=== PATIENT | female | born 1995 | race Hispanic/Latino ===

== ENCOUNTER 2017-09-30 22:33 | Emergency (ER) | payer MEDICAID, OTHER ==
[~2017-09-30 22:33] MED LIST: PREN-147 PO
[2017-09-30] MEDS ORDERED: ACETAMINOPHEN 325 MG TAB ONE (22:54)
[2017-09-30 23:21] LABS: RAPID GROUP A STREP NEGATIVE (NEGATIVE)
[2017-10-01] MEDS ORDERED: IBUPROFEN 400 MG TABLET ONE (00:02)
[2017-10-01 00:21] LABS: BILIRUBIN,URINE Small (NEGATIVE); COLOR,URINE Dark Yellow (YELLOW); GLUCOSE, URINE (UA) Negative (NEGATIVE); KETONES,URINE Trace mg/dL (NEGATIVE); LEUKOCYTE ESTERASE ,URINE Small (NEGATIVE); NITRATE,URINE Negative (NEGATIVE); OCCULT BLOOD,URINE Large (NEGATIVE); PH,URINE 5.5 (5.0-8.0); PROTEIN,URINE POS 1+ (NEGATIVE)
[2017-10-01 00:23] LABS: APPEARANCE,URINE SLIGHTLY CLOUDY (CLEAR); HCG,QUAL RESULT NEGATIVE (NEGATIVE)
[2017-10-01 00:27] LABS: RBC,URINE 26-50 /HPF (0-1)
[2017-10-01 00:28] LABS: BACTERIA,URINE Few /HPF (None Seen); MUCUS,URINE Few LPF (None Seen)
== END 2017-10-01 00:38 | disposition home or self-care (01) ==
LOC: EDH 22:33
DX: B34.9 Viral infection, unspecified (principal); M54.9 Dorsalgia, unspecified
CPT/HCPCS: 81001; 81025; 87804; 87880

== ENCOUNTER 2018-06-12 19:47 | Emergency (ER) | payer MEDICAID, OTHER ==
[2018-06-12 20:07] LABS: APPEARANCE,URINE Cloudy (CLEAR); BILIRUBIN,URINE Negative (NEGATIVE); COLOR,URINE Yellow (YELLOW); GLUCOSE, URINE (UA) Negative (NEGATIVE); KETONES,URINE Negative (NEGATIVE); LEUKOCYTE ESTERASE ,URINE Trace (NEGATIVE); NITRATE,URINE Negative (NEGATIVE); OCCULT BLOOD,URINE Negative (NEGATIVE); PH,URINE 5.5 (5.0-8.0); PROTEIN,URINE Negative (NEGATIVE)
[2018-06-12 20:09] LABS: HCG,QUAL RESULT NEGATIVE (NEGATIVE)
[2018-06-12 20:14] LABS: BACTERIA,URINE Few /HPF (None Seen); RBC,URINE None Seen /HPF (0-1); WBC,URINE 0-1 /HPF (0-1)
[2018-06-12 20:15] LABS: MUCUS,URINE Moderate LPF (None Seen)
[2018-06-12] MEDS ORDERED: IBUPROFEN 600 MG TABLET ONE (20:27)
[2018-06-12] MEDS ORDERED: ORPHENADRINE CITRATE 30 MG/ML ML ONE (20:27)
[2018-06-12 21:13] LABS: BASOPHILS % (AUTO) 0.6 % (0.0-5.0); EOSINOPHILS % (AUTO) 1.6 % (0.0-8.0); HEMATOCRIT 39.1 % (36-48); LYMPHOCYTES % (AUTO) 23.2 % (21.0-51.0); MEAN CORPUSCULAR HGB CONC 33.3 g/dL (32.0-36.0); MONOCYTES % (AUTO) 7.9 % (3.0-13.0); NEUTROPHILS % (AUTO) 66.7 % (40.0-77.0); NUCLEATED RED BLOOD CELLS 0.1 % (0.0-0.19); PLATELET COUNT (AUTO) 275 K/uL (130-400); RED BLOOD CELL COUNT(AUTO) 4.65 MIL/uL (4.00-5.50); WHITE BLOOD COUNT (AUTO) 7.1 K/uL (4.8-10.8)
[2018-06-12 21:34] LABS: CREATININE 0.9 mg/dL (0.5-1.5)
[2018-06-12 21:39] LABS: ALBUMIN 3.3 g/dL (3.5-5.0); BILIRUBIN,TOTAL 0.2 mg/dL (0.2-1.0); TOTAL PROTEIN, SERUM 7.3 g/dL (6.0-8.3)
[2018-06-12] MEDS ORDERED: DICYCLOMINE HCL 20 MG TAB ONE (21:46)
== END 2018-06-12 22:26 | disposition home or self-care (01) ==
LOC: EDH 19:47
DX: S39.011A Strain of muscle, fascia and tendon of abdomen, initial encounter (principal); X58.XXXA Exposure to other specified factors, initial encounter; Y93.89 Activity, other specified; Y92.89 Other specified places as the place of occurrence of the external cause; Y99.8 Other external cause status
CPT/HCPCS: 36415; 80053; 81001; 81025; 83690; 85025; 96372; 99284; J2360

== ENCOUNTER 2020-05-03 05:23 | Inpatient (IN) | payer MEDICAID ==
[~2020-05-03] VITALS: Ht 157.5 cm; Wt 127.5 kg
[2020-05-03] MEDS ORDERED: CEFAZOLIN SODIUM 1 GM VIAL IVP PRN (05:45)
[2020-05-03] MEDS ORDERED: LACTATED RINGERS 1000ML 1,000 ML IV SCH (05:45)
[2020-05-03] MEDS ORDERED: CALDOLOR 800MG+NS 250ML 250 ML IV PRN (05:45)
[2020-05-03 06:14] LABS: MEAN CORPUSCULAR HEMOGLOBIN 27.2 pg (27.0-33.0); MEAN CORPUSCULAR HGB CONC 32.8 g/dL (32.0-36.0); MEAN CORPUSCULAR VOLUME 82.9 fL (79-99); RED BLOOD CELL COUNT(AUTO) 4.34 MIL/uL (4.00-5.50); RED CELL DISTRIBUTION WIDTH 16.1 % (11.0-15.5); WHITE BLOOD COUNT (AUTO) 7.4 K/uL (4.8-10.8)
[2020-05-03 06:23] VITALS: BP 132/65
[2020-05-03] MEDS ORDERED: PREN-196 PO (06:27)
[2020-05-03] MEDS ORDERED: NALOXONE HCL 0.4 MG/1 ML ML ONE ×2 (09:49)
[2020-05-03] MEDS ORDERED: DURAMORPH PF1 MG/ML 10ML AMP IV ONE (09:50)
[2020-05-03] MEDS ORDERED: CEFAZOLIN SODIUM 1 GM VIAL IVP ONE (09:54)
[2020-05-03] MEDS ORDERED: OXYTOCIN 10 USP UNITS/ML ONE ×2 (09:57→10:21)
[2020-05-03] MEDS ORDERED: ONDANSETRON HCL 4 MG/2 ML VIAL ONE (11:16)
[2020-05-03] MEDS ORDERED: SIMETHICONE 80 MG TAB.CHEW PO PRN (11:45)
[2020-05-03] MEDS ORDERED: SODIUM CHLORIDE 0.9% 10 ML VIAL IVP PRN (11:45)
[2020-05-03] MEDS ORDERED: DEXTROSE 5 %-0.45 % NACL 1,000 ML IV PRN (11:45)
[2020-05-03] MEDS ORDERED: OXYTOCIN-LR 20 UNITS/1000 ML 1,000 ML IV PRN (11:45)
[2020-05-03] MEDS ORDERED: ACETAMINOPHEN-CODEINE 300/30MG TAB PO PRN (11:45)
[2020-05-03] MEDS ORDERED: IBUPROFEN 600 MG TABLET PO PRN (11:45)
[2020-05-03] MEDS ORDERED: ACETAMINOPHEN EXTRA STRENGTH 500 MG TABLET PO PRN (11:45)
[2020-05-03] MEDS ORDERED: LANOLIN 30GM OINTMENT TP PRN (11:45)
[2020-05-03] MEDS ORDERED: PROMETHAZINE HCL 25 MG/ML 1ML AMPULE IM PRN (11:45)
[2020-05-03] MEDS ORDERED: HYDROCODONE/ACETAMINOPHEN 5/325 MG TAB PO PRN (11:45)
[2020-05-03] MEDS ORDERED: MEPERIDINE-PF 75 MG/ML SYG IM PRN (11:45)
[2020-05-03] MEDS ORDERED: BISACODYL 10 MG SUPP.RECT RC PRN (11:45)
[2020-05-03] MEDS ORDERED: MEPERIDINE-PF 75 MG/ML SYG ONE (11:49)
[2020-05-03] MEDS ORDERED: ONDANSETRON HCL 4 MG/2 ML VIAL IVP PRN (12:30)
[2020-05-03] MEDS ORDERED: DiphenhydrAMINE HCL 50 MG/ML VIAL IVP PRN (12:30)
[2020-05-03] MEDS ORDERED: NALOXONE HCL 0.4 MG/1 ML ML IVP PRN ×3 (12:30)
[2020-05-03 16:01] VITALS: BP 121/57
--- NOTE | 2020-05-03 17:45 | NUR ---
REPORT RECEIVED FROM NATAN HENDERSON L/D AND PATIENT CARE TRANSFERRED AT THIS TIME. PATIENT ORIENTED TO UNIT AND CALL LIGHT AT BEDSIDE TO CALL FOR ASSISTANCE NEEDED. NOTED LARGE SKIN FOLD TO INCISION AND ABD PAD APPLIED TO SITE TO KEEP INCISION CLEAN AND DRY. PATIENT DENIES PAIN AND C/O FEELING WARM. BLANKET REMOVED AND ROOM TEMP WAS LOWERED. ASSISTED PATIENT WITH LATCHING BABY TO RIGHT BREAST. LANOLIN OINTMENT GIVEN TO APPLY PRN .
[2020-05-03] MEDS: CEFAZOLIN 3GM /D5W 100ML 100 ML IV SCH (18:34)
[2020-05-03 20:00] VITALS: BP 117/60
--- NOTE | 2020-05-03 20:00 | NUR ---
STATUS/ACTIVITY ENCOURAGED FLUIDS, TCDB, USE IS, TURN TO SIDES, RENARD CARE GIVEN, REPOSITIONED TO LEFT SIDE Addendum: 05/04/20 at 0219 by EDGAR FRANK LVN Amended: Links added.
[2020-05-03] MEDS: CALDOLOR 800MG+NS 250ML 250 ML IV SCH (20:09)
[2020-05-03] MEDS ORDERED: DOCUSATE SODIUM 100 MG CAP PO SCH (21:00)
[2020-05-03 23:35] VITALS: BP 100/48
[2020-05-04] MEDS: CEFAZOLIN 3GM /D5W 100ML 100 ML IV SCH (01:52)
[2020-05-04] MEDS: CALDOLOR 800MG+NS 250ML 250 ML IV SCH (03:45)
[2020-05-04 03:55] VITALS: BP 115/54
--- NOTE | 2020-05-04 05:00 | NUR ---
CRESPO CATHETER F/C REMOVED, INTACT, INSTRUCTED TO CALL FOR ASSISTANCE WHEN SHE HAS URGE TO VOID AND TO PUSH FLUIDS Addendum: 05/04/20 at 0521 by EDGAR FRANK LVN Amended: Links added.
[2020-05-04] MEDS: DIPH,PERTUSS(ACELL),TET VAC/PF 0.5 ML VIAL IM SCH ×2 (05:42→11:45)
[2020-05-04 07:03] LABS: HEMATOCRIT 26.9 % (36-48); MEAN CORPUSCULAR HEMOGLOBIN 27.4 pg (27.0-33.0); MEAN CORPUSCULAR HGB CONC 32.3 g/dL (32.0-36.0); MEAN CORPUSCULAR VOLUME 84.9 fL (79-99); RED BLOOD CELL COUNT(AUTO) 3.17 MIL/uL (4.00-5.50); WHITE BLOOD COUNT (AUTO) 8.7 K/uL (4.8-10.8)
[2020-05-04 07:15] LABS: HEPATITIS Bs ANTIGEN SCREEN P Negative (Negative)
[2020-05-04 07:55] VITALS: BP 112/66
--- NOTE | 2020-05-04 07:55 | NUR ---
ASSESSED PATIENT AND INCISION OPEN TO AIR WITH DERMABOND AND INSORB. NO DRAINAGE NOTED AND DENIES PAIN. ENCOURAGED PATIENT TO AMBULATE TO STIMULATE BLADDER AND BE ABLE TO VOID. VERBALIZED UNDERSTANDING.
--- NOTE | 2020-05-04 08:30 | NUR ---
VERBALIZED ATTEMPTED TO VOID AND COULD NOT VOID. ENCOURAGE TO PUSH FLUIDS AND PIV INFUSING. STATES HAS NOT DRANK ANY WATER.
--- NOTE | 2020-05-04 10:30 | NUR ---
UP TO CHAIR AND STILL DUE TO VOID. TOLERATED DIET WELL WITHOUT ANY N/V. DENIES ANY DIZZINESS ON AMBULATION. CRANBERRY JUICE GIVEN AND ENCOURAGED TO DRINK.
[2020-05-04] MEDS ORDERED: IBUPROFEN 800 MG TAB PO SCH (11:45)
[2020-05-04 12:00] VITALS: BP 116/60
--- NOTE | 2020-05-04 12:00 | NUR ---
RECEIVED RHOGAM AND WAS ADMININSTERED IM TO LEFT GLUTEAL. PATIENT WAS INSTRUCTED ON NEED FOR RHOGAM SINCE BABY IS RH POSITIVE AND VERBALIZED BEING AWARE OF NEED.
--- NOTE | 2020-05-04 13:15 | NUR ---
SCRIPT ISSUED AND DISCHARGE INSTRUCTIONS GIVEN TO PATIENT. WAS BEING DISCHARGED AND AFTER BABY WAS DISCHARGED INFO WAS PROVIDED TO PATIENT. PATIENT HAS REMAINED STABLE AND DENIES PAIN AT THIS TIME.
--- NOTE | 2020-05-04 13:40 | NUR ---
PATIENT WAS TAKEN VIA W/C CARRYING BABY IN ARMS TO FAMILY VEHICLE AND WAS DISCHARGED TO BOYFRIEND IN STABLE CONDIITON.
== END 2020-05-04 13:40 | disposition home or self-care (01) | DRG 540 ==
LOC: LDH 05:23 → WSH 17:39
PROC: 10D00Z1 Extraction of Products of Conception, Low, Open Approach (ICD-10-PCS; principal; 2020-05-03 10:00)
PROC: 3E0234Z Introduction of Serum, Toxoid and Vaccine into Muscle, Percutaneous Approach (ICD-10-PCS; 2020-05-04)
DX: O36.63X0 Maternal care for excessive fetal growth, third trimester, not applicable or unspecified (principal); O26.893 Other specified pregnancy related conditions, third trimester; O99.214 Obesity complicating childbirth; E66.9 Obesity, unspecified; Z20.828 Contact with and (suspected) exposure to other viral communicable diseases; Z3A.39 39 weeks gestation of pregnancy; Z37.0 Single live birth; Z67.41 Type O blood, Rh negative
CPT/HCPCS: 36415; 59510; 83033; 85027; 86592; 86850; 86900; 86901; 87340; 90715; A4344; G0378; J0690; J1741; J2175; J2274; J2310; J2405; J2590; J2791; J7120; U0003

== ENCOUNTER → 2021-10-02 | Outpatient (CLI) | payer MEDICAID ==
[~2021-10-02] MED LIST changes: +PREN-196 PO
== END | disposition home or self-care (01) ==
LOC: RAH 08-14 16:02
PROVIDERS: ATTEND Specialist
DX: N60.02 Solitary cyst of left breast (principal); N64.4 Mastodynia
CPT/HCPCS: 76641

== ENCOUNTER 2023-05-14 17:43 | Observation (INO) | payer MEDICAID ==
[~2023-05-14] VITALS: Ht 157.5 cm; Wt 117.9 kg
[2023-05-14 17:44] VITALS: BP 160/92; PULSE 82; RESP 20
[2023-05-14 18:22] LABS: BASOPHILS # (AUTO) 0.02 K/uL (0.00-0.20); BASOPHILS % (AUTO) 0.2 % (0.0-5.0); EOSINOPHILS # (AUTO) 0.03 K/uL (0.00-0.70); EOSINOPHILS % (AUTO) 0.4 % (0.0-8.0); HEMATOCRIT 35.9 % (36-48); IMMATURE GRANULOCYTE ABSOLUTE 0.05 K/uL (0-1); LYMPHOCYTES # (AUTO) 1.2 K/uL (1.0-4.8); LYMPHOCYTES % (AUTO) 14.1 % (21.0-51.0); MEAN CORPUSCULAR HEMOGLOBIN 26.4 pg (27.0-33.0); MEAN CORPUSCULAR HGB CONC 32.6 g/dL (32.0-36.0); MEAN CORPUSCULAR VOLUME 80.9 fL (79-99); MONOCYTES # (AUTO) 0.5 K/uL (0.1-1.0); MONOCYTES % (AUTO) 6.1 % (3.0-13.0); NEUTROPHILS # (AUTO) 6.4 K/uL (1.8-7.7); NEUTROPHILS % (AUTO) 78.6 % (40.0-77.0); PLATELET COUNT (AUTO) 211 K/uL (130-400); RED BLOOD CELL COUNT(AUTO) 4.44 MIL/uL (4.00-5.50); RED CELL DISTRIBUTION WIDTH 14.3 % (11.0-15.5); WHITE BLOOD COUNT (AUTO) 8.2 K/uL (4.8-10.8)
[2023-05-14 18:23] LABS: APPEARANCE,URINE CLEAR (CLEAR); BILIRUBIN,URINE NEGATIVE (NEGATIVE); COLOR,URINE YELLOW (YELLOW); GLUCOSE, URINE (UA) NEGATIVE (NEGATIVE); KETONES,URINE 150 mg/dL (NEGATIVE); LEUKOCYTE ESTERASE ,URINE 25 Leu/uL (NEGATIVE); NITRATE,URINE NEGATIVE (NEGATIVE); OCCULT BLOOD,URINE NEGATIVE (NEGATIVE); PH,URINE 6.5 (5.0-8.0); PROTEIN,URINE 30 mg/dL (NEGATIVE); UROBILINOGEN,URINE 0.2 mg/dL (0.2-1.0)
[2023-05-14 18:24] LABS: ADD UA MICROSCOPIC YES
[2023-05-14 18:32] LABS: CREATININE 0.5 mg/dL (0.5-1.5); POTASSIUM 3.5 mmol/L (3.5-5.1)
[2023-05-14 18:33] LABS: INR 0.93 (0.85-1.15); PROTHROMBIN TIME 10.3 SEC (9.6-11.6)
[2023-05-14 18:35] LABS: BACTERIA,URINE FEW /HPF (None Seen); MUCUS,URINE FEW LPF (None Seen); SQUAMOUS EPITHELIAL CELL,UR FEW /HPF (0-2)
[2023-05-14 18:35] LABS: PARTIAL THROMBOPLASTIN TIME 29.8 SEC (26.3-35.5)
[2023-05-14 18:37] LABS: ALBUMIN 2.9 g/dL (3.5-5.0); BILIRUBIN,TOTAL 0.5 mg/dL (0.2-1.0); TOTAL PROTEIN, SERUM 7.1 g/dL (6.0-8.3); URIC ACID 2.9 mg/dL (2.6-7.2)
[2023-05-14] MEDS ORDERED: LACTATED RINGERS 1000ML IV PRN (20:00)
[2023-05-14] MEDS ORDERED: LACTATED RINGERS 1000ML 1,000 ML IV SCH (22:00)
== END 2023-05-14 23:05 | disposition home or self-care (01) ==
LOC: EDH 17:43 → LDH 17:44
PROVIDERS: ADMIT Obstetrics & Gynecology; ATTEND Obstetrics & Gynecology
DX: O26.893 Other specified pregnancy related conditions, third trimester (principal); R03.0 Elevated blood-pressure reading, without diagnosis of hypertension; Z3A.36 36 weeks gestation of pregnancy; Z79.899 Other long term (current) drug therapy
CPT/HCPCS: 59025; 96360; 96361 ×2; 84550; 80053; 85025; 85384; 85610; 85730; 87088; 81001; 36415; 76819; G0378 ×6; G0379